=== PATIENT | female | born 1960 | race American Indian/Alaskan Native ===

== ENCOUNTER 2018-07-28 06:42 | Day surgery (SDC) | payer BC ==
[2018-07-28 07:09] VITALS: O2SAT 100
--- NOTE | 2018-07-28 07:53 | CP.SDSHP ---
Same Day Surgery H & P - History Proposed Procedure: colonoscopy - Allergies Allergies: Allergies No Known Allergies Allergy (Verified 07/28/18 07:01) - Physical Exam Vital Signs: Vital Signs 07/28/18 07:02 Temperature 98 F Pulse Rate 80 Respiratory 20 Rate Blood Pressure 90/65 L O2 Sat by Pulse 100 Oximetry - Date & Time Date: 07/28/18 Time: 07:52 Short Stay Discharge - Short Stay Discharge Admitting Diagnosis/Reason for Visit: SCREENING Disposition: HOME/ ROUTINE
[2018-07-28] MEDS ORDERED: Propofol 10 mg/ml Inj (20 ML) ONE ×2 (08:00→08:14)
[2018-07-28 08:38] VITALS: TEMP 95.9
[2018-07-28] MEDS ORDERED: Lactated Ringer's 500 ML IV SCH (08:45)
[2018-07-28 09:25] VITALS: BP 86/50; PULSE 68; RESP 12
== END 2018-07-28 09:45 | disposition home or self-care (01) ==
LOC: C.ENDO 06:42
PROVIDERS: ATTEND Colon & Rectal Surgery
DX: Z12.11 Encounter for screening for malignant neoplasm of colon (principal); K62.1 Rectal polyp; K64.8 Other hemorrhoids
CPT/HCPCS: 45388; 88305; J2704; J7120